=== PATIENT | female | born 1995 | race Caucasian/White ===

== ENCOUNTER 2016-10-18 09:28 | Emergency (ER) | payer OTHER ==
[~2016-10-18] VITALS: Ht 154.9 cm; Wt 65.3 kg
--- NOTE | 2016-10-18 10:48 | RAD ---
Indication with cramping. Initially transabdominal scans were obtained. The initial transabdominal scans were supplemented with transvaginal scans. A quantitative hCG value of 13,500 has been submitted. The uterus measures approximately 10 x 6.3 x 5 cm. At the fundus of the uterus there is a gestational sac and yolk sac. The findings are compatible with a of approximately 5 weeks 5 days gestation. No pole is yet apparent. The right ovary appears normal. There is a 1.6 cm hypoechoic mass associated with the left ovary compatible with a physiologic cyst. A small to moderate amount of free fluid is noted in the pelvis. IMPRESSION: IUP of approximately 5 weeks 5 days gestation. Physiologic cyst associated with the left ovary. Moderate amount of free fluid in the pelvis.
[2016-10-18 10:51] LABS: BILIRUBIN,URINE NEG (NEG); CLARITY,URINE HAZY; COLOR,URINE YELLOW; GLUCOSE,URINE NEG (NEG)
[2016-10-18 10:52] LABS: BACTERIA,URINE FEW /HPF (0-FEW); NITRITE,URINE NEG (NEG); SPERM,URINE PRESENT /HPF; SQUAMOUS EPITHELIAL CELL,UR MOD /LPF; UROBILINOGEN,URINE 0.2 mg/dL (0.2 mg/dL)
--- NOTE | 2016-10-18 11:11 | PHYS DOC ---
Past History Past Medical History: Anxiety, UTI Past Surgical History: No Surgical History Smoking: Non-smoker Alcohol Use: None Drug Use: None Adult General Chief Complaint Chief Complaint: VAGINAL BLEEDING HPI HPI Patient is a 20 year old F who presents with vaginal bleeding and cramping with recent positive test. She is currently on an antibiotic for urinary tract infection. She has a history of urinary tract infections that are associated with hematuria. She has not had an initial OB appointment and this is her first . Review of Systems Review of Systems Constitutional: Denies fever or chills [] Eyes: Denies change in visual acuity, redness, or eye pain [] HENT: Denies nasal congestion or sore throat [] Respiratory: Denies cough or shortness of breath [] Cardiovascular: No additional information not addressed in HPI [] GI: Denies nausea, vomiting, bloody stools or diarrhea [] : Negative except history of present illness Musculoskeletal: Denies back pain or joint pain [] Integument: Denies rash or skin lesions [] Neurologic: Denies headache, focal weakness or sensory changes [] Endocrine: Denies polyuria or polydipsia [] Family History Family History Noncontributory Current Medications Current Medications None except antibiotic, she believes is Macrobid Allergies Allergies Coded Allergies Type Severity Reaction Last Updated Verified No Known Drug Allergies 10/18/16 No Physical Exam Physical Exam Constitutional: Well developed, well nourished, no acute distress, non-toxic appearance. [] HENT: Normocephalic, atraumatic, bilateral external ears normal, oropharynx moist, no oral exudates, nose normal. [] Eyes: PERRLA, EOMI, conjunctiva normal, no discharge. [] Neck: Normal range of motion, no tenderness, supple, no stridor. [] Cardiovascular:Heart rate regular rhythm, no murmur [] Lungs & Thorax: Bilateral breath sounds clear to auscultation [] Abdomen: Bowel sounds normal, soft, no tenderness, no masses, no pulsatile masses. [] Skin: Warm, dry, no erythema, no rash. [] Back: No tenderness, no CVA tenderness. [] Extremities: No tenderness, no cyanosis, no clubbing, ROM intact, no edema. [] Neurologic: Alert and oriented X 3, normal motor function, normal sensory function, no focal deficits noted. [] Psychologic: Affect normal, judgement normal, mood normal. [] Current Patient Data Vital Signs nursing documentation was reviewed Lab Results Laboratory Tests Test 10/18/16 09:40 10/18/16 09:53 Urine Collection Type Unknown Urine Color Yellow Urine Clarity Hazy Urine pH 5.5 Urine Specific [place] 1.020 Urine Protein Neg (NEG-TRACE) Urine Glucose (UA) Neg mg/dL (NEG) Urine Ketones (Stick) Neg mg/dL (NEG) Urine Blood Neg (NEG) Urine Nitrite Neg (NEG) Urine Bilirubin Neg (NEG) Urine Urobilinogen Dipstick 0.2 mg/dL (0.2 mg/dL) Urine Leukocyte Esterase Small (NEG) Urine RBC 1-2 /HPF (0-2) Urine WBC 5-10 /HPF (0-4) Urine Squamous Epithelial Cells Mod /LPF Urine Bacteria Few /HPF (0-FEW) Urine Mucus Slight /LPF Urine Sperm Present /HPF Maternal Serum HCG Beta Subunit 99663 mIU/mL (0-6) H Radiology/Procedures Radiology/Procedures Initial OB ultrasound Impressions: Radiology report was reviewed and found an intrauterine at 5 weeks 5 days with physiologic cyst on the left ovary Course & Med Decision Making Course & Med Decision Making Pertinent Labs and Imaging studies reviewed. (See chart for details) Dragon Disclaimer Dragon Disclaimer This chart was dictated in whole or in part using Voice Recognition software in a busy, high-work load, and often noisy Emergency Department environment. It may contain unintended and wholly unrecognized errors or omissions. Departure Departure: Impression: Primary Impression: UTI (urinary tract infection) in , antepartum Disposition: 01 HOME, SELF-CARE Condition: STABLE Referrals: TAMMIE LAWRENCE (PCP) Patient Instructions: - Urinary Tract Infection Additional Instructions: Silvina was seen in the ED for vaginal bleeding and cramping during . No emergency medical condition was found during the history and physical exam. She did have normal labs and imaging verifying a normal in the uterus. She was advised to continue her antibiotics for urinary tract infection. She was advised to follow up with her primary care doctor as soon as possible to establish care for this . She was also advised to return to the emergency room if she develops new or worsening symptoms Problem Qualifiers Primary Impression: UTI (urinary tract infection) in , antepartum Trimester: first trimester Qualified Codes: O23.41 - Unspecified infection of urinary tract in , first trimester GEORGETTE FULLER MD Oct 18, 2016 11:11
[2016-10-18 11:15] VITALS: BP 111/47
== END 2016-10-18 11:30 | disposition home or self-care (01) ==
LOC: ER 09:28
DX: O23.41 Unspecified infection of urinary tract in pregnancy, first trimester (principal); Z3A.01 Less than 8 weeks gestation of pregnancy; F41.9 Anxiety disorder, unspecified
CPT/HCPCS: 36415; 76801; 76817; 81001; 84702; 87086; 99285-25

== ENCOUNTER 2016-12-01 10:30 | Emergency (ER) | payer OTHER ==
[~2016-12-01] VITALS: Ht 154.9 cm; Wt 65.3 kg
[2016-12-01 10:35] VITALS: BP 132/90
[2016-12-01 11:38] LABS: BACTERIA,URINE MOD /HPF (0-FEW); BILIRUBIN,URINE NEG (NEG); CLARITY,URINE CLOUDY; COLOR,URINE YELLOW; GLUCOSE,URINE NEG (NEG); NITRITE,URINE NEG (NEG); RBC,URINE RARE /HPF (0-2); UROBILINOGEN,URINE 1 mg/dL (0.2 mg/dL)
[2016-12-01 11:39] LABS: SQUAMOUS EPITHELIAL CELL,UR MANY /LPF
--- NOTE | 2016-12-01 13:32 | RAD ---
Examination: Obstetric ultrasound less than 14 weeks History: History of spotting, bleeding, cramping Comparison: None available Findings: Single living intrauterine identified with heart rate of 158 bpm. movement seen. position is variable. Given LMP 09/15/2016. Clinical age is 11 weeks and 0 days by LMP with estimated date of delivery 06/22/2017. [place]-rump length measures 5.86 cm corresponding to 12 weeks and 3 days +/- 8 days. Biparietal diameter measures 1.7 cm corresponding to 12weeks and 4 days. Head circumference measures 6.3 cm corresponding to 12 weeks and 3 days. Abdominal circumference measures 5.3 cm corresponding to 12 weeks and 2 days. Femur length measures 0.7 cm corresponding 12 weeks and 1 day. Head circumference to abdominal circumference ratio 1.18. Cephalic index 73.9. Femur length to biparietal diameter ratio 41.4. Femur length to head circumference 11.1 Femur length abdominal circumference 13.1 Cervical length 3 cm. There is a cystic structure identified in the right ovary measuring 2.2 cm likely corpus luteal cyst. Impression: Single living intrauterine with heart rate of 158 bpm. Gestational age corresponds to 12 weeks and 3 days with estimated date of delivery by this ultrasound 06/12/2017.
--- NOTE | 2016-12-01 13:55 | PHYS DOC ---
Past History Past Medical History: Anxiety, UTI Past Surgical History: No Surgical History Smoking: Non-smoker Alcohol Use: None Drug Use: None Adult General Chief Complaint Chief Complaint: PAIN ON URINATION HPI HPI Patient is a 21-year-old female, 1, who is about 12 weeks , presents with 2 complaints. #1, she is having vaginal bleeding and "wants to get the baby checked out". Her to, she continues to have UTI symptoms. She was seen about 2 weeks ago at her doctor's office and diagnosed with a UTI, she took all of her antibiotics, and she still has some burning when she urinates. She believes she might still have a UTI or didn't get over it. She did have some vaginal bleeding earlier in the , the last time she had bleeding was approximately November 18. She has had a couple of ultrasounds that have not revealed the cause of bleeding. This morning however she woke up with vaginal bleeding, it had soaked through her clothing and into her bed, also some lower abdominal and lower back cramping. Her OB doctor is aware of this and has been following, patient states her blood type is A+. Review of Systems Review of Systems Constitutional: Denies fever or chills [] : As in history of present illness Allergies Allergies Allergies Coded Allergies Type Severity Reaction Last Updated Verified No Known Drug Allergies 10/18/16 No Physical Exam Physical Exam Constitutional: Well developed, well nourished, no acute distress, non-toxic appearance. Alert, ambulatory, up and around the emergency department without any difficulty. HENT: Normocephalic, atraumatic, bilateral external ears normal, nose normal. [ ] Eyes: conjunctiva normal, no discharge. [] Neck: Normal range of motion, no stridor. [] Cardiovascular:Heart rate regular rhythm, no murmur [] Lungs & Thorax: Bilateral breath sounds clear to auscultation [] Abdomen: Bowel sounds normal, soft, no tenderness, no masses, no pulsatile masses. Abdomen entirely benign exam. Skin: Warm, dry, no erythema, no rash. [] Extremities: No tenderness, no cyanosis, no clubbing, ROM intact, no edema. [] Neurologic: Alert and oriented X 3, normal motor function, normal sensory function, no focal deficits noted. [] Current Patient Data Lab Results Laboratory Tests Test 9/2/17 10:43 Urine Collection Type Unknown Urine Color Yellow Urine Clarity Cloudy Urine pH 8.5 Urine Specific [place] 1.015 Urine Protein Neg (NEG-TRACE) Urine Glucose (UA) Neg mg/dL (NEG) Urine Ketones (Stick) Neg mg/dL (NEG) Urine Blood Neg (NEG) Urine Nitrite Neg (NEG) Urine Bilirubin Neg (NEG) Urine Urobilinogen Dipstick 1 mg/dL (0.2 mg/dL) Urine Leukocyte Esterase Mod (NEG) Urine RBC Rare /HPF (0-2) Urine WBC 5-10 /HPF (0-4) Urine Squamous Epithelial Cells Many /LPF Urine Bacteria Mod /HPF (0-FEW) Urine Mucus Mod /LPF EKG EKG [] Radiology/Procedures Radiology/Procedures OB ultrasound was obtained and read by the radiologist. IUP with heart rate 158, 12 weeks 3 days by measurement. There is no source of bleeding identified.[] Course & Med Decision Making Course & Med Decision Making Pertinent Labs and Imaging studies reviewed. (See chart for details) 21-year-old female 1 presents with recurrent vaginal bleeding and the complaint of dysuria. Her urinalysis is contaminated but negative here in the ED. Ultrasound shows a viable 12 week 3 day IUP without source of bleeding identified. I discussed with the patient continued threatened miscarriage precautions, follow up with her OB, continued pelvic rest. The patient has been on antibiotics a couple of times during this and I really don't believe her urinalysis is positive today, I like her OB doctor to decide whether antibiotics again would be appropriate but I don't really think they are indicated at this time. [] Dragon Disclaimer Dragon Disclaimer This chart was dictated in whole or in part using Voice Recognition software in a busy, high-work load, and often noisy Emergency Department environment. It may contain unintended and wholly unrecognized errors or omissions. Departure Departure: Impression: Primary Impression: Vaginal bleeding in patient at less than 20 weeks gestation Additional Impressions: Threatened in first trimester Dysuria during in first trimester Disposition: 01 HOME, SELF-CARE Condition: STABLE Referrals: TAMMIE LAWRENCE (PCP) Patient Instructions: Pelvic Rest, Threatened Miscarriage, [id number] Additional Instructions: Today, urine did not show a urinary tract infection. Make sure you are drinking plenty of fluids. Follow-up with your OB doctor for recheck if your symptoms continue. Ultrasound continues to show a normally developing , with no source of where the bleeding is coming from. Continue to do pelvic rest--nothing in the vagina--until your OB doctor tells you you don't have to. Problem Qualifiers KYRA JUAN MD Dec 01, 2016 13:55
== END 2016-12-01 13:59 | disposition home or self-care (01) ==
LOC: ER 10:30
DX: O20.0 Threatened abortion (principal); O23.41 Unspecified infection of urinary tract in pregnancy, first trimester; R30.0 Dysuria; Z3A.12 12 weeks gestation of pregnancy
CPT/HCPCS: 76801; 81001; 87086; 99285-25

== ENCOUNTER 2017-04-15 06:30 | Emergency (ER) | payer OTHER ==
[2017-04-15] MEDS ORDERED: PYRI25TA3 PO (07:18)
--- NOTE | 2017-04-15 07:18 | PHYS DOC ---
Past History Past Medical History: No Pertinent History Past Surgical History: No Surgical History Smoking: Non-smoker Alcohol Use: None Drug Use: None Adult General Chief Complaint Chief Complaint: nausea and vomiting HPI HPI Patient is a 21 year old F who presents with intermittent nausea and vomiting. She is G1 at 31 weeks gestational age without previous competitions during her . She states that she became nauseous intermittently starting last evening and had 2 episodes of vomiting. During 1 episode of vomiting she noted minimal red blood speckling her vomit. She describes stretching-like abdominal pain has been constant over the last several weeks of her . She denies abnormal vaginal discharge or bleeding. She denies cramping/contractions. She states that she is feeling baby move regularly. Her bowel movements are regular. She has no urinary difficulty or changes. She has no other associated symptoms at this time. She has no other exacerbating or alleviating factors. Review of Systems Review of Systems Constitutional: Denies fever or chills [] Eyes: Denies change in visual acuity, redness, or eye pain [] HENT: Denies nasal congestion or sore throat [] Respiratory: Denies cough or shortness of breath [] Cardiovascular: No additional information not addressed in HPI [] GI: Negative except history of present illness : Denies dysuria or hematuria [] Musculoskeletal: Denies back pain or joint pain [] Integument: Denies rash or skin lesions [] Neurologic: Denies headache, focal weakness or sensory changes [] Endocrine: Denies polyuria or polydipsia [] All other systems were reviewed and found to be within normal limits, except as documented in this note. Family History Family History No pertinent medical history was reported Current Medications Current Medications Current medications were reviewed Allergies Allergies Allergies Coded Allergies Type Severity Reaction Last Updated Verified No Known Drug Allergies 10/18/16 No Physical Exam Physical Exam Constitutional: Well developed, well nourished, no acute distress, non-toxic appearance. [] HENT: Normocephalic, atraumatic, Eyes: EOMI, conjunctiva normal, no discharge. [] Neck: Normal range of motion, no tenderness, supple, no stridor. [] Cardiovascular:Heart rate regular rhythm, Lungs & Thorax: Bilateral breath sounds clear to auscultation [] Abdomen: Bowel sounds normal, soft, no tenderness, no masses, no pulsatile masses. [] Gravid heart tones: 140 Skin: Warm, dry, no erythema, no rash. [] Extremities: No tenderness, no cyanosis, no clubbing, ROM intact, no edema. [] Neurologic: Alert and oriented X 3, normal motor function, normal sensory function, no focal deficits noted. [] Psychologic: Affect normal, judgement normal, mood normal. [] Current Patient Data Vital Signs Normal vital signs. Please see nursing recommendation for specifics Lab Results Laboratory Tests Test 04/15/17 07:40 Urine Collection Type Unknown Urine Color [place] Urine Clarity Cloudy Urine pH 5.5 Urine Specific [place] 1.020 Urine Protein Neg (NEG-TRACE) Urine Glucose (UA) Neg mg/dL (NEG) Urine Ketones (Stick) Trace mg/dL (NEG) Urine Blood Neg (NEG) Urine Nitrite Neg (NEG) Urine Bilirubin Neg (NEG) Urine Urobilinogen Dipstick 1 mg/dL (0.2 mg/dL) Urine Leukocyte Esterase Trace (NEG) Urine RBC Occ /HPF (0-2) Urine WBC 1-4 /HPF (0-4) Urine Squamous Epithelial Cells Mod /LPF Urine Bacteria Mod /HPF (0-FEW) Urine Hyaline Casts Occ /HPF Urine Mucus Mod /LPF EKG EKG [] Radiology/Procedures Radiology/Procedures [] Course & Med Decision Making Course & Med Decision Making Pertinent Labs and Imaging studies reviewed. (See chart for details) [] Dragon Disclaimer Dragon Disclaimer This electronic medical record was generated, in whole or in part, using a voice recognition dictation system. Departure Departure: Impression: Primary Impression: Nausea and vomiting during Additional Impression: Urinary tract infection Disposition: 01 HOME, SELF-CARE Condition: STABLE Referrals: TAMMIE LAWRENCE (PCP) Patient Instructions: - Third Trimester Additional Instructions: Silvina was seen in the emergency department for nausea and vomiting. No emergency medical condition was found on history or physical exam. She was found have signs and symptoms of a urinary tract infection. She was started on an antibiotic. She was given a prescription for nausea medication and advised follow-up with her primary care doctor/OB in the next 3-5 days for further management. She was also advised to return to the emergency room if she develops new or worsening symptoms. Scripts Cephalexin (KEFLEX) 500 Mg Capsule 500 MG PO TID for 7 Days, #21 CAP Prov: GEORGETTE FULLER MD 04/15/17 Pyridoxine Hcl (PYRIDOXINE HCL) 25 Mg Tablet 25 MG PO TID Y for NAUSEA for 7 Days, #21 TAB Prov: GEORGETTE FULLER MD 04/15/17 Problem Qualifiers Additional Impression: Urinary tract infection Urinary tract infection type: site unspecified Hematuria presence: with hematuria Qualified Codes: N39.0 - Urinary tract infection, site not specified ; R31.9 - Hematuria, unspecified GEORGETTE FULLER MD Apr 15, 2017 07:18
[2017-04-15 08:26] LABS: BACTERIA,URINE MOD /HPF (0-FEW); BILIRUBIN,URINE NEG (NEG); CLARITY,URINE CLOUDY; COLOR,URINE AMBER; GLUCOSE,URINE NEG (NEG); NITRITE,URINE NEG (NEG); RBC,URINE OCC /HPF (0-2); SQUAMOUS EPITHELIAL CELL,UR MOD /LPF; UROBILINOGEN,URINE 1 mg/dL (0.2 mg/dL)
[2017-04-15 08:27] LABS: HYALINE CASTS, URINE OCC /HPF
[2017-04-15] MEDS ORDERED: ONDANSETRON ODT 4 MG TAB.RAPDIS PO ONE (08:30)
[2017-04-15] MEDS ORDERED: CEPH-264 PO (08:36)
[2017-04-15 08:45] VITALS: BP 124/51
[2017-04-15] MEDS ORDERED: CEPHALEXIN 250 MG CAPSULE PO ONE (09:00)
== END 2017-04-15 08:45 | disposition home or self-care (01) ==
LOC: ER 06:30
DX: O21.9 Vomiting of pregnancy, unspecified (principal); O23.43 Unspecified infection of urinary tract in pregnancy, third trimester; R31.9 Hematuria, unspecified; Z3A.31 31 weeks gestation of pregnancy
CPT/HCPCS: 81001; 87086; 99284; Q0162; 87186